=== PATIENT | male | born 1950 | race Caucasian/White ===

== ENCOUNTER 2019-03-22 10:05 | Emergency (ER) | payer OTHER ==
[2019-03-22] MEDS ORDERED: LORazepam 1 MG TAB PO ONE (10:25)
--- NOTE | 2019-03-22 10:33 | ER Report ---
History and Physical Time Seen By MD: 10:33 Hx. of Stated Complaint: PATIENT REPORTS THAT HE BEGAN HAVING A PANIC ATTACK YESTERDAY WHEN HE GOT INTO TOWN. PATIENT IS FROM HODGES AND WEAR OXYGEN AT NIGHT HPI/ROS CHIEF COMPLAINT: Anxiety HISTORY OF PRESENT ILLNESS: 68 show male long history of anxiety multiple panic attack episodes last was 3 days ago normally takes Ativan does not [place] [employer] [place] and was having another panic attack. Patient denies any chest pain shortness of breath nausea vomiting diarrhea fever chills or additional complaints noted patient is not on chronic medication and has been in the past. Patient has no additional complaints REVIEW OF SYSTEMS: Respiratory: No cough, no dyspnea. Cardiovascular: No chest pain, no palpitations. Gastrointestinal: No vomiting, no abdominal pain. Musculoskeletal: No back pain. Remainder of the 14 system rev: Yes Allergies: Coded Allergies: No Known Drug Allergies (Unverified , 03/22/19) Reviewed Nurses Notes: Yes Old Medical Records Reviewed: Yes Constitutional Vital Sign - Last 24 Hours 03/22/19 03/22/19 03/22/19 03/22/19 10:11 10:12 10:15 10:30 Temp 98.3 Pulse 79 Resp 28 B/P (MAP) 142/84 (103) 142/84 123/80 (94) Pulse Ox 66 O2 Delivery Room Air O2 Flow Rate 3.0 03/22/19 03/22/19 03/22/19 03/22/19 11:00 11:05 13:00 13:17 Pulse 63 64 72 B/P (MAP) 120/76 (91) Pulse Ox 92 91 92 Physical Exam General Appearance: [The patient is alert, has no immediate need for airway protection and no current signs of toxicity.] [ ] Eyes: Pupils equal and round no injection. Respiratory: Chest is non tender, lungs are clear to auscultation. Cardiac: regular rate and rhythm [ ] Gastrointestinal: Abdomen is soft and non tender, no masses, bowel sounds normal. Musculoskeletal: Neck: Neck is supple and non tender. Extremities have full range of motion and are non tender. Skin: No rashes or lesions. [ ] DIFFERENTIAL DIAGNOSIS: After history and physical exam differential diagnosis was considered for anxiety panic attack panic disorder Medical Decision Making Data Points Result Diagram: 03/22/19 1124 03/22/19 1124 Laboratory Hematology Test 03/22/19 11:24 Red Blood Count 4.37 M/uL (4.00-5.60) Mean Corpuscular Volume 95.9 fL (80.0-96.0) Mean Corpuscular Hemoglobin 31.1 pg (26.0-33.0) Mean Corpuscular Hemoglobin Concent 32.5 g/dL (32.0-36.0) Red Cell Distribution Width 14.4 % (11.5-14.5) Mean Platelet Volume 8.0 fL (7.2-11.1) Neutrophils (%) (Auto) 68.5 % (39.4-72.5) Lymphocytes (%) (Auto) 21.6 % (17.6-49.6) Monocytes (%) (Auto) 7.8 % (4.1-12.4) Eosinophils (%) (Auto) 1.5 % (0.4-6.7) Basophils (%) (Auto) 0.6 % (0.3-1.4) Nucleated RBC Relative Count (auto) 0.0 /100WBC Neutrophils # (Auto) 3.9 K/uL (2.0-7.4) Lymphocytes # (Auto) 1.2 K/uL (1.3-3.6) Monocytes # (Auto) 0.4 K/uL (0.3-1.0) Eosinophils # (Auto) 0.1 K/uL (0.0-0.5) Basophils # (Auto) 0.0 K/uL (0.0-0.1) Nucleated RBC Absolute Count (auto) 0.00 K/uL D-Dimer Quantitative (PE/DVT) 0.81 ug/ml (0-0.50) Sodium Level 142 mmol/L (137-145) Potassium Level 4.7 mmol/L (3.5-5.0) Chloride Level 103 mmol/L (98-107) Carbon Dioxide Level 32 mmol/L (22-30) Blood Urea Nitrogen 19 mg/dl (9-21) Creatinine 1.40 mg/dl (0.66-1.25) Glomerular Filtration Rate Calc 50.7 Random Glucose 130 mg/dl (75-110) Calcium Level 8.9 mg/dl (8.4-10.2) Total Bilirubin 0.3 mg/dl (0.2-1.3) Aspartate Amino Transf (AST/SGOT) 19 U/L (0-35) Alanine Aminotransferase (ALT/SGPT) 15 U/L (0-56) Alkaline Phosphatase 76 U/L (0-126) Troponin I < 0.012 ng/ml B-Type Natriuretic Peptide 60 pg/ml (0-100) Total Protein 7.7 g/dl (6.3-8.2) Albumin 4.1 g/dl (3.5-5.0) Chemistry Test 03/22/19 11:24 White Blood Count 5.7 k/uL (4.5-11.0) Red Blood Count 4.37 M/uL (4.00-5.60) Hemoglobin 13.6 g/dL (14.0-18.0) Hematocrit 41.9 % (42.0-52.0) Mean Corpuscular Volume 95.9 fL (80.0-96.0) Mean Corpuscular Hemoglobin 31.1 pg (26.0-33.0) Mean Corpuscular Hemoglobin Concent 32.5 g/dL (32.0-36.0) Red Cell Distribution Width 14.4 % (11.5-14.5) Platelet Count 237 K/uL (150-450) Mean Platelet Volume 8.0 fL (7.2-11.1) Neutrophils (%) (Auto) 68.5 % (39.4-72.5) Lymphocytes (%) (Auto) 21.6 % (17.6-49.6) Monocytes (%) (Auto) 7.8 % (4.1-12.4) Eosinophils (%) (Auto) 1.5 % (0.4-6.7) Basophils (%) (Auto) 0.6 % (0.3-1.4) Nucleated RBC Relative Count (auto) 0.0 /100WBC Neutrophils # (Auto) 3.9 K/uL (2.0-7.4) Lymphocytes # (Auto) 1.2 K/uL (1.3-3.6) Monocytes # (Auto) 0.4 K/uL (0.3-1.0) Eosinophils # (Auto) 0.1 K/uL (0.0-0.5) Basophils # (Auto) 0.0 K/uL (0.0-0.1) Nucleated RBC Absolute Count (auto) 0.00 K/uL D-Dimer Quantitative (PE/DVT) 0.81 ug/ml (0-0.50) Glomerular Filtration Rate Calc 50.7 Calcium Level 8.9 mg/dl (8.4-10.2) Total Bilirubin 0.3 mg/dl (0.2-1.3) Aspartate Amino Transf (AST/SGOT) 19 U/L (0-35) Alanine Aminotransferase (ALT/SGPT) 15 U/L (0-56) Alkaline Phosphatase 76 U/L (0-126) Troponin I < 0.012 ng/ml B-Type Natriuretic Peptide 60 pg/ml (0-100) Total Protein 7.7 g/dl (6.3-8.2) Albumin 4.1 g/dl (3.5-5.0) Coagulation Test 03/22/19 11:24 D-Dimer Quantitative (PE/DVT) 0.81 ug/ml ED Course/Re-evaluation ED Course ED course this is a she'll male comes in with a sense of anxiety or panic disorder patient is also noted to be hypoxic on arrival skews of the history later that he has been on subfrontal oxygen the past is not on it currently however due to the fact been long current concerning for pulmonary embolus a d- dimer was positive CT angiogram shows no pulmonary emboli negative for pulmonary emboli patient will be placed on supplemental oxygen for the remaining of his stay in altitude and elevation patient was given some Ativan feels significantly better no longer has anxieties breathing that her saturations on supplemental 2 L is a 90% patient would discharge diagnosis would be hypoxia and anxiety Decision to Disposition Date: March 22, 2019 Decision to Disposition Time: 13:29 Depart Departure Latest Vital Signs Vital Signs Date Time Temp Pulse Resp B/P (MAP) Pulse Ox O2 Delivery O2 Flow Rate FiO2 03/22/19 13:17 72 92 03/22/19 11:00 120/76 (91) 03/22/19 10:15 3.0 03/22/19 10:12 98.3 28 Room Air Impression: Primary Impression: Anxiety Additional Impression: Hypoxia Condition: Improved Disposition: HOME OR SELF-CARE Patient Instructions: Anxiety (DC) Problem Qualifiers ABDULAZIZ CALDEORN MD March 22, 2019 10:33
--- NOTE | 2019-03-22 11:12 | EKG ---
FACILITY: [facility] PATIENT NAME: SHANNON AYALA : [id number] MR: [id number] V: [id number] EXAM DATE: ORDERING PHYSICIAN: ABDULAZIZ CALDERON TECHNOLOGIST: Test Reason : Blood Pressure : / mmHG Vent. Rate : 070 BPM Atrial Rate : 070 BPM P-R Int : 166 ms QRS Dur : 112 ms QT Int : 410 ms P-R-T Axes : 064 -13 078 degrees QTc Int : 442 ms Normal sinus rhythm Normal ECG No previous ECGs available Confirmed by HAWA BEST ([id number]) on 03/22/2019 7:00:23 PM Referred By: Confirmed By:HAWA BEST
[2019-03-22 11:36] LABS: PLATELET COUNT, AUTOMATED 237 K/uL (150-450)
--- NOTE | 2019-03-22 11:58 | RADIOLOGY IMAGING REPORT ---
FACILITY: [facility] PATIENT NAME: Jasbir Mesa : 1950 MR: [id number] V: [id number] EXAM DATE: ORDERING PHYSICIAN: ABDULAZIZ CALDERON TECHNOLOGIST: Location: [facility] Patient: Jasbir Mesa : 1950 Visit/Account:[id number] Date of Sevice: 03/22/2019 Exam type: CHEST PA LAT History: sob Comparison: None. Findings: There is interstitial prominence throughout the lungs. This mild elevation left hemidiaphragm. Ther e is a focal area of airspace consolidation the medial left lung base. There is no evidence of pleur al effusions or overt pulmonary edema.. No evidence of a pneumothorax or pneumomediastinum. The car diac silhouette appears normal in size. IMPRESSION: 1. Interstitial prominence of the lungs which may be chronic in nature although clinical correlation needed Focal area of airspace consolidation the medial left lung base consistent with scarring versus atelec tasis versus developing infiltrate Report Dictated By: Anali Khan MD at 03/22/2019 11:50 AM Report E-Signed By: Anali Khan MD at 03/22/2019 11:54 AM WSN:[email or web address]
[2019-03-22] MEDS ORDERED: IOPAMIDOL 76% 150 ML INFUS BTL 150 ML ONE (12:07)
[2019-03-22] MEDS ORDERED: NS(*) 0.9% 50 ML BAG 50 ML ONE (12:07)
--- NOTE | 2019-03-22 13:22 | RADIOLOGY IMAGING REPORT ---
[place] [facility] [place]IENT NAME: Jasbir Mesa : 1950 MR: [id number] V: [id number] EXAM DATE: ORDERING PHYSICIAN: ABDULAZIZ CALDERON TECHNOLOGIST: Location: [facility] [place] Patient: Jasbir Mesa : 1950 Visit/Account:[id number] Date of Sevice: 03/22/2019 EXAMINATION: CTA of the chest with IV contrast HISTORY: Shortness of breath TECHNIQUE: Pulmonary embolus protocol - Thin axial CT images of the chest were obtained with IV con trast during maximal pulmonary arterial opacification. Reconstruction of the source data includes mul tiplanar 2D coronal and sagittal reconstructed images, and 3D coronal and sagittal MIP images. Repres entative images have been stored on PACS. One of the following dose optimization techniques was utilized in the performance of this exam: Autom ated exposure control; adjustment of the mA and/or kV according to the patient's size; or use of an i terative reconstruction technique. Specific details can be referenced in the facility's radiology C T exam operational policy. Contrast: 75 mL of IV [id number]. COMPARISON: None. FINDINGS: Pulmonary arteries: The pulmonary arteries are well opacified, without suspicious filling defect. Heart, aorta, and great vessels: Normal caliber thoracic aorta. Vascular calcifications including c oronary artery calcifications. Normal heart size. No pericardial effusion. Lungs and pleura: There are mild to moderate changes of centrilobular and paraseptal emphysema bilat erally, with associated subpleural fibrosis. Mild atelectasis and/or scarring in the lower lungs. N o suspicious focal consolidation. The central airways are patent. No pleural effusion or pneumothor ax. Mediastinum and chema: Negative. Visualized upper abdomen: Cholecystectomy. Chest wall: Negative. Bones: Negative. IMPRESSION: 1. No evidence of pulmonary embolism. 2. No other acute findings in the chest. 3. Changes of centrilobular and paraseptal emphysema bilaterally with scattered subpleural fibrosis. 4. Coronary artery calcifications. 5. Cholecystectomy. Report Dictated By: Ivan Sorto MD at 03/22/2019 1:06 PM Report E-Signed By: Ivan Sorto MD at 03/22/2019 1:18 PM WSN:[email or web address]
[2019-03-22 13:30] VITALS: BP 110/82
== END 2019-03-22 14:30 | disposition home or self-care (01) ==
LOC: ER 10:29
DX: F41.9 Anxiety disorder, unspecified (principal); R09.02 Hypoxemia
CPT/HCPCS: 71046; 71275; 83880; 84484; 85025; 85379; 93005; 99284; J7050; Q9967; 82040; 82247; 82310; 82374; 82435; 82565; 82947; 84075; 84132; 84155; 84295; 84450; 84460; 84520